=== PATIENT | female | born 1995 | race African-American/Black ===

== ENCOUNTER 2019-08-04 08:58 | Emergency (ER) | payer BC ==
--- NOTE | 2019-08-04 09:57 | EDM.PDOC ---
ED HPI GENERAL MEDICAL PROBLEM - General Chief Complaint: ENT Problem Stated Complaint: SORE THROAT Time Seen by Provider: 08/04/19 09:21 Source of Information: Reports: Patient, RN Notes Reviewed - History of Present Illness INITIAL COMMENTS - FREE TEXT/NARRATIVE: 23 year old female comes in with sore throat. This started about 1 week ago. Painful to swallow. Chills but no obvious fever. Mild nasal cheryl. Not coughing. No resp. problems. Throat Pain Score (Numeric/FACES): 10 - Related Data Allergies Allergy/AdvReac Type Severity Reaction Status Date / Time bee venom protein (honey bee) Allergy Airway Verified 08/04/19 09:24 Tightness mushroom Allergy Hives Verified 08/04/19 09:24 Home Meds: Home Meds Cephalexin [Keflex] 500 mg PO Q6HR #30 capsule 08/04/19 [Rx] Acetaminophen/HYDROcodone [[place] 325-5 MG] 1 tab PO Q6H PRN #14 tablet 08/05/19 [Rx] ED ROS ENT - Review of Systems Review Of Systems: See Below Constitutional: Reports: Chills. Denies: Fever HEENT: Reports: Throat Pain. Denies: Ear Discharge, Ear Pain, Sinus Problem Respiratory: Denies: Shortness of Breath Cardiovascular: Denies: Chest Pain GI/Abdominal: Reports: Diarrhea. Denies: Abdominal Pain, Vomiting Musculoskeletal: Reports: No Symptoms Skin: Reports: No Symptoms Neurological: Reports: No Symptoms ED EXAM, ENT - Physical Exam Exam: See Below General Appearance: Alert, Mild Distress Mouth/Throat: Pharyngeal Erythema, Tonsillar Erythema, Tonsillar Exudates, Tonsillar Swelling (mild to moderate bilat, not severe) Head: Atraumatic. No: Facial Swelling Neck: Supple. No: Lymphadenopathy (L), Lymphadenopathy (R) Respiratory/Chest: No Respiratory Distress, Lungs Clear, Normal Breath Sounds Cardiovascular: Regular Rate, Rhythm Neurological: Alert, Oriented, No Motor/Sensory Deficits Skin: Warm, Dry, Normal Color, No Rash Course - Vital Signs Last Recorded V/S: Last Vital Signs Temp 97.4 F 08/04/19 09:21 Pulse 75 08/04/19 09:21 Resp 19 08/04/19 09:21 BP 125/74 08/04/19 09:21 Pulse Ox 99 08/04/19 09:21 Departure - Departure Time of Disposition: 09:54 Disposition: Home, Self-Care 01 Condition: Fair Clinical Impression: Tonsillitis - Discharge Information Prescriptions: Cephalexin [Keflex] 500 mg PO Q6HR #30 capsule Instructions: Tonsillitis, [id number] Referrals: PCP,None [Primary Care Provider] - Forms: ED Department Discharge, ED Return to Work/School Form Additional Instructions: Cephalexin 500 mg 4 times daily for 1 week or until gone. Prescription has been sent electronically to [facility]. You may alternate Tylenol and ibuprofen as needed for pain. Follow-up clinic if not much better within 3-5 days as expected.
== END 2019-08-04 10:09 | disposition home or self-care (01) ==
LOC: JD.ED 08:58
DX: J03.90 Acute tonsillitis, unspecified (principal); Z91.030 Bee allergy status; Z91.018 Allergy to other foods
CPT/HCPCS: 87081; 87430; 99283

== ENCOUNTER 2019-08-05 13:05 | Emergency (ER) | payer BC ==
--- NOTE | 2019-08-05 13:54 | EDM.PDOC ---
ED HPI GENERAL MEDICAL PROBLEM - General Chief Complaint: Allergic Reaction Stated Complaint: SOB/POSS ALLERGIC REACTION TO MED Time Seen by Provider: 08/05/19 13:34 Source of Information: Reports: Patient, RN Notes Reviewed - History of Present Illness INITIAL COMMENTS - FREE TEXT/NARRATIVE: 23-year-old female comes in with worsening sore throat. Started a few days ago. She was seen here in the ED and make clinical diagnosis of tonsillitis, started on cephalexin antibiotic. She did get a couple of doses in last evening and then has had 2 further doses today. As that her throat is more swollen and painful today. She can feel that her neck is more full and swollen anteriorly today. No rash or other facial swelling. Some nasal and sinus congestion. And coughing. She has had some nausea but no vomiting or diarrhea. 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 Denies: Fever HEENT: Reports: Rhinitis, Throat Pain, Throat Swelling Respiratory: Denies: Shortness of Breath Cardiovascular: Denies: Chest Pain GI/Abdominal: Reports: Nausea. Denies: Abdominal Pain, Vomiting Musculoskeletal: Denies: Neck Pain, Back Pain Skin: Denies: Rash Neurological: Reports: No Symptoms ED EXAM GENERAL NO PERIP PULSE - Physical Exam Exam: See Below General Appearance: Alert, Mild Distress Eye Exam: Bilateral Eye: PERRL Throat/Mouth: Inflammation, Other (Tonsils are swollen with small amount of exudate bilateral, pharynx and posterior tonsillar area inflamed. Oral mucosa moist.) Neck: Supple, Lymphadenopathy (L), Lymphadenopathy (R) (Mild anterior mild anterior) Respiratory/Chest: No Respiratory Distress, Lungs Clear Cardiovascular: Regular Rate, Rhythm Extremities: Normal Inspection, Normal Range of Motion Neurological: Alert, Oriented, No Motor/Sensory Deficits Skin Exam: Warm, Dry, No Rash Course - Vital Signs Last Recorded V/S: Last Vital Signs Temp 98.4 F 08/05/19 13:17 Pulse 83 08/05/19 13:17 Resp 20 08/05/19 13:17 BP 119/75 08/05/19 13:17 Pulse Ox 99 08/05/19 13:17 - Orders/Labs/Meds Labs: Laboratory Tests 08/05/19 08/05/19 Range/Units 14:05 14:05 WBC 9.53 (3.98-10.04) K/mm3 RBC 4.20 (3.98-5.22) M/mm3 Hgb 12.1 (11.2-15.7) gm/dl Hct 37.3 (34.1-44.9) % MCV 88.8 (79.4-94.8) fl MCH 28.8 (25.6-32.2) pg MCHC 32.4 (32.2-35.5) g/dl RDW Std Deviation 44.0 (36.4-46.3) fL Plt Count 258 (182-369) K/mm3 MPV 10.0 (9.4-12.3) fl Neutrophils % (Manual) 59 (40-60) % Band Neutrophils % 0 (0-10) % Lymphocytes % (Manual) 32 (20-40) % Atypical Lymphs % 0 % Monocytes % (Manual) 9 (2-10) % Eosinophils % (Manual) 0 L (0.7-5.8) % Basophils % (Manual) 0 L (0.1-1.2) Platelet Estimate Adequate RBC Morph Comment Normal Monoscreen Positive H (NEGATIVE) Meds: Medications Discontinued Medications Generic Name Dose Route Start Last Admin Trade Name Freq PRN Reason Stop Dose Admin Hydrocodone Bitart/Acetaminophen 1 tab 08/05/19 15:41 08/05/19 15:46 [place] 325-5 Mg PO 08/05/19 15:42 1 tab ONETIME ONE Administration - Re-Assessments/Exams Free Text/Narrative Re-Assessment/Exam: 08/07/19 14:27 [place] has come back pos. Discharge instr. as documented Departure - Departure Time of Disposition: 15:41 Disposition: Home, Self-Care 01 Condition: Fair Clinical Impression: Infectious mononucleosis - Discharge Information Prescriptions: Acetaminophen/HYDROcodone [[place] 325-5 MG] 1 tab PO Q6H PRN #14 tablet PRN Reason: Pain Instructions: Infectious Mononucleosis Referrals: PCP,None [Primary Care Provider] - Forms: ED Department Discharge, ED Return to Work/School Form Additional Instructions: Rest, drink plenty of water to maintain hydration, prednisone 40 mg every day for 1 week or until gone, hydrocodone 1 tab every 6-8 hours as needed for severe pain, when pain becomes less severe you can take Tylenol up to 3 times daily. Follow-up at our [facility] medical clinic in about 5-7 days for recheck, call [phone] for appointment, return to ED as needed if symptoms worsening in any way.
[2019-08-05] MEDS ORDERED: Acetaminophen/HYDROcodone 325-5 MG Tab PO ONE (15:41)
== END 2019-08-05 15:57 | disposition home or self-care (01) ==
LOC: JD.ED 13:05
DX: B27.90 Infectious mononucleosis, unspecified without complication (principal); Z91.018 Allergy to other foods; Z91.030 Bee allergy status
CPT/HCPCS: 36415; 85007; 85027; 86308; 99283; A9270; 99282

== ENCOUNTER 2019-11-26 11:56 | Emergency (ER) | payer BC, MEDICAID ==
--- NOTE | 2019-11-26 13:54 | EDM.PDOC ---
ED HPI GENERAL MEDICAL PROBLEM - General Chief Complaint: Respiratory Problem Stated Complaint: COUGH Time Seen by Provider: 11/26/19 13:54 - History of Present Illness INITIAL COMMENTS - FREE TEXT/NARRATIVE: 24-year-old female presents the emergency room with asthma. Patient denies fevers or chills but also has a sore throat she is got a long history of asthma and sometimes gets really bad this time year she is wondering if she can get a nebulizer machine. She states her asthma is getting a little bit worse she uses her albuterol inhaler no more than once a day at this point.. However she is getting a little worse. She has a sore throat but no associated fever. She has had mono in the past and this is different Chest Pain Score (Numeric/FACES): 8 - Related Data Allergies Allergy/AdvReac Type Severity Reaction Status Date / Time bee venom protein (honey bee) Allergy Airway Verified 08/04/19 09:24 Tightness mushroom Allergy Hives Verified 08/04/19 09:24 Home Meds: Home Meds Albuterol Sulfate [Albuterol Sulfate Hfa] 8.5 gm IH ASDIRECTED #1 hfa.aer.ad [Rx] Albuterol Sulfate [Albuterol Sulfate Hfa] 8.5 gm IH Q4HR PRN 11/26/19 [History] predniSONE 40 mg PO WITHBREAKFAST #8 tab 11/26/19 [Rx] predniSONE [Prednisone] 40 mg PO QAM #8 tablet 11/26/19 [Rx] Past Medical History - Past Health History Medical/Surgical History: Denies Medical/Surgical History Respiratory History: Reports: Asthma 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 Denies: Shortness of Breath, Sputum ( Occasional) Cardiovascular: Reports: No Symptoms Endocrine: Reports: No Symptoms GI/Abdominal: Reports: No Symptoms : Reports: No Symptoms Musculoskeletal: Reports: No Symptoms Skin: Reports: No Symptoms Neurological: Reports: No Symptoms ED EXAM, GENERAL - Physical Exam Exam: See Below Exam Limited By: No Limitations General Appearance: Alert, No Apparent Distress Eye Exam: Bilateral Eye: Normal Inspection Ears: Normal External Exam, Normal Canal, Hearing Grossly Normal, Normal TMs Nose: Normal Inspection, Normal Mucosa, No Blood Throat/Mouth: Normal Lips, Normal Teeth, Normal Voice, No Airway Compromise, Other (Exudate on the tonsils mild erythema of the posterior pharynx and tonsils ) Head: Atraumatic, Normocephalic Neck: Normal Inspection, Supple, Non-Tender, Full Range of Motion. No: Lymphadenopathy (L), Lymphadenopathy (R) Respiratory/Chest: No Respiratory Distress, Lungs Clear, Decreased Breath Sounds (Slightly decreased breath sounds no wheezes crackles or rhonchi) Cardiovascular: Regular Rate, Rhythm, No Edema, No Murmur Course - Vital Signs Last Recorded V/S: Last Vital Signs Temp 37.1 C 11/26/19 12:42 Pulse 64 11/26/19 12:42 Resp 16 11/26/19 12:42 BP 119/74 11/26/19 12:42 Pulse Ox 98 11/26/19 12:42 - Orders/Labs/Meds Orders: Active Orders 24 hr Category Date Time Status CULTURE STREP A CONFIRMATION [RM] Stat Lab 11/26/19 14:23 Results Rapid Strep w/culture conf [STREP SCRN A RAPID W CULT Lab 11/26/19 14:23 Results CONF] [RM] Stat Meds: Medications Discontinued Medications Generic Name Dose Route Start Last Admin Trade Name Serena PRN Reason Stop Dose Admin Prednisone 40 mg 11/26/19 14:11 11/26/19 14:21 Prednisone PO 11/26/19 14:12 40 mg ONETIME ONE Administration - Re-Assessments/Exams Free Text/Narrative Re-Assessment/Exam: 11/26/19 15:39 Patient is continuing to do well here in the emergency department her rapid strep is negative. Chest x-ray shows no acute process she is got some mild hyperinflation. At this point we will discharge the patient with prednisone 40 mg a day. She is to increase her albuterol inhaler to 2 puffs every 4 hours while awake and then gradually decrease. She is just establishing with a local provider now discuss topical steroid treatment if needed. Departure - Departure Time of Disposition: 15:41 Disposition: Home, Self-Care 01 Clinical Impression: Asthma - Discharge Information Prescriptions: Albuterol Sulfate [Albuterol Sulfate Hfa] 8.5 gm IH ASDIRECTED #1 hfa.aer.ad predniSONE 40 mg PO WITHBREAKFAST #8 tab predniSONE [Prednisone] 40 mg PO QAM #8 tablet Referrals: PCP,None [Primary Care Provider] - Forms: ED Department Discharge Additional Instructions: Return to the emergency room with any questions problems or worsening symptoms. Use your albuterol 2 puffs every 4 hours while awake for the next week and then as needed. Follow-up with your regular provider you are trying to establish with this next week and discussed inhaled steroid treatment for your asthma. Use great caution out in the community with the Covid problem we have as it is very contagious and more dangerous to people with asthma. Sepsis Event Note - Evaluation Sepsis Screening Result: No Definite Risk - Focused Exam Vital Signs: Vital Signs Temp Pulse Resp BP Pulse Ox 11/26/19 12:42 37.1 C 64 16 119/74 98 Date Exam was Performed: 11/26/19 Time Exam was Performed: 15:39 - My Orders Last 24 Hours: My Active Orders 11/26/19 14:23 CULTURE STREP A CONFIRMATION [RM] Stat Rapid Strep w/culture conf [STREP SCRN A RAPID W CULT CONF] [] Stat - Assessment/Plan Last 24 Hours: My Active Orders 11/26/19 14:23 CULTURE STREP A CONFIRMATION [RM] Stat Rapid Strep w/culture conf [STREP SCRN A RAPID W CULT CONF] [] Stat
[2019-11-26] MEDS ORDERED: predniSONE 20 MG Tab PO ONE (14:11)
--- NOTE | 2019-11-26 15:10 | CR ---
Chest: PA and lateral views of the chest were obtained. Comparison: No prior chest x-ray. Heart size and mediastinum are normal. Lungs are clear with no acute parenchymal change. Bony structures are unremarkable. Impression: 1. Nothing acute is seen in 2 view chest x-ray. Diagnostic code #1 Study was dictated in MDT
== END 2019-11-26 16:05 | disposition home or self-care (01) ==
LOC: JD.ED 11:56
DX: J45.909 Unspecified asthma, uncomplicated (principal); Z91.030 Bee allergy status; Z91.018 Allergy to other foods
CPT/HCPCS: 71046; 87081; 87430; 99285; A9270; 99283

== ENCOUNTER 2019-12-23 15:40 | Emergency (ER) | payer BC, MEDICAID ==
[2019-12-23] MEDS ORDERED: Sodium Chloride 0.9% 10 ML Syringe FLUSH PRN (16:11)
--- NOTE | 2019-12-23 16:35 | EDM.PDOC ---
ED HPI GENERAL MEDICAL PROBLEM - General Chief Complaint: SEPTIC CLEANER Problem Stated Complaint: NEWLY PG/BLEEDING Time Seen by Provider: 12/23/19 15:57 Source of Information: Reports: Patient, RN Notes Reviewed History Limitations: Reports: No Limitations - History of Present Illness INITIAL COMMENTS - FREE TEXT/NARRATIVE: Patient is a 24-year-old female who presents to the ED for the evaluation of her vaginal bleeding and . The patient states that she is around 5-1/ 2 to 6 weeks , and she is started having some vaginal bleeding this morning, it started off at light spotting, but has increased to heavier more sustained flow over the day. She states that she is having more intense cramping as the bleeding has gotten worse. She notes that she is saturating a panty liner, and has only changed her liner 2 times today. She denied seeing any sort of clots, or any sort of dizziness and lightheadedness. She states that she was supposed to have an appoint with Dr. Mackey on Thursday for establishing with this . She is a , and states that she had no problems with her previous . She denies any other sick-like symptoms, fever/chills, cough/shortness of breath, nausea/vomiting/diarrhea. 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 ED EXAM - Physical Exam Exam: See Below Exam Limited By: No Limitations General Appearance: Alert, WD/WN, No Apparent Distress Eye Exam: Bilateral Eye: EOMI, Normal Inspection, PERRL Ears: Normal External Exam Nose: Normal Inspection Throat/Mouth: Normal Inspection, Normal Lips, Normal Teeth, Normal Gums, Normal Oropharynx, Normal Voice, No Airway Compromise Head: Atraumatic, Normocephalic Neck: Normal Inspection Respiratory/Chest: No Respiratory Distress, Lungs Clear, Normal Breath Sounds, No Accessory Muscle Use, Chest Non-Tender Cardiovascular: Normal Peripheral Pulses, Regular Rate, Rhythm, No Edema, No Murmur GI/Abdominal Exam: Normal Bowel Sounds, Soft, Non-Tender, No Distention, No Mass Heart Tones: Not Rains Movement: Not Appreciated Extremities: Normal Inspection, Normal Capillary Refill Neurological: Alert, Oriented, Normal Cognition, No Motor/Sensory Deficits Psychiatric: Normal Affect, Normal Mood Skin Exam: Warm, Dry, Intact, Normal Color, No Rash Course - Vital Signs Last Recorded V/S: Last Vital Signs Temp 99.0 F 12/23/19 16:01 Pulse 56 L 12/23/19 16:54 Resp 18 12/23/19 16:54 BP 118/60 12/23/19 16:54 Pulse Ox 100 12/23/19 16:54 - Orders/Labs/Meds Orders: Active Orders 24 hr Category Date Time Status Peripheral IV Care [RC] . DIRECTED Care 12/23/19 16:12 Ordered OB Transvaginal [US] Stat Exams 12/23/19 16:11 Ordered PATIENT RETYPE [BBK] Routine Lab 12/23/19 17:22 Ordered Sodium Chloride 0.9% [Saline Flush] Med 12/23/19 16:11 Ordered 10 ml FLUSH ASDIRECTED PRN Peripheral IV Insertion Adult [OM.PC] Stat Oth 12/23/19 16:11 Ordered Medication Orders Sodium Chloride (Saline Flush) 10 ml FLUSH ASDIRECTED PRN PRN Reason: Keep Vein Open Labs: Laboratory Tests 12/23/19 12/23/19 12/23/19 Range/Units 16:22 16:22 16:22 WBC 5.75 (3.98-10.04) K/mm3 RBC 4.28 (3.98-5.22) M/mm3 Hgb 12.5 (11.2-15.7) gm/dl Hct 38.6 (34.1-44.9) % MCV 90.2 (79.4-94.8) fl MCH 29.2 (25.6-32.2) pg MCHC 32.4 (32.2-35.5) g/dl RDW Std Deviation 45.1 (36.4-46.3) fL Plt Count 257 (182-369) K/mm3 MPV 10.7 (9.4-12.3) fl Neut % (Auto) 60.1 (34.0-71.1) % Lymph % (Auto) 32.9 (19.3-51.7) % [place] % (Auto) 6.6 (4.7-12.5) % Eos % (Auto) 0.2 L (0.7-5.8) Baso % (Auto) 0.2 (0.1-1.2) % Neut # (Auto) 3.46 (1.56-6.13) K/mm3 Lymph # (Auto) 1.89 (1.18-3.74) K/mm3 [place] # (Auto) 0.38 H (0.24-0.36) K/mm3 Eos # (Auto) 0.01 L (0.04-0.36) K/mm3 Baso # (Auto) 0.01 (0.01-0.08) K/mm3 HCG, Quant 11.0 mIU/mL Blood Type B POSITIVE Meds: Medications Generic Name Dose Route Start Last Admin Trade Name Freq PRN Reason Stop Dose Admin Sodium Chloride 10 ml 12/23/19 16:11 Saline Flush FLUSH ASDIRECTED PRN Keep Vein Open - Re-Assessments/Exams Free Text/Narrative Re-Assessment/Exam: 12/23/19 16:34 Patient presents to the ED for evaluation of her vaginal bleeding/cramping in . Have ordered transvaginal ultrasound, and some basic labs for further evaluation. 12/23/19 17:29 Patient's laboratory evaluation and ultrasound have returned, the patient's hCG level is 11.0, blood type is B+. Hemoglobin is within normal limits. Ultrasound demonstrates no intrauterine , differential considerations would include early intrauterine too soon to characterize recent or possible ectopic gestation. Close interval hCG and sonographic follow-up suggested to better characterize. I did talk the results over with Dr. Mackey, and the patient's last menstrual period was 11/17/2019, and she would agree that it is more of a spontaneous in nature, and states that the patient can follow-up with her in clinic early next week for repeat hCG and reevaluation. Departure - Departure Time of Disposition: 17:30 Disposition: Home, Self-Care 01 Condition: Good Clinical Impression: Complete - Discharge Information *PRESCRIPTION DRUG MONITORING PROGRAM REVIEWED*: No *COPY OF PRESCRIPTION DRUG MONITORING REPORT IN PATIENT KRISTEN: No Instructions: Coping With Loss, Miscarriage, [id number] Referrals: PCP,None [Primary Care Provider] - Forms: ED Department Discharge Additional Instructions: You were evaluated in the ER today regarding your abdominal pain/vaginal bleeding in . You did have some labs drawn, and these were within normal limits, your hCG level was 11.0 , your blood type is B+. Your ultrasound demonstrated the possibility of an early intrauterine , recent spontaneous or possible ectopic . In combination with the extremely low HCG level for your suspected gestational age, You most likely had a spontaneous and you will have some cramping and continued vaginal bleeding. Recommend that you do not lift anything heavier than a gallon of milk (5 lbs), do not engage in sexual activities, try to get as much pelvic rest as possible for the next few days. Please try not to exert yourself, rest and relax, and take it easy. If you are bleeding through more than 1-2 maxi pads every couple hours, this would be cause for concern to return to the ER for immediate management. Dr. Mackey was consulted on your case, and she would also agree that she thinks this is more of a spontaneous , and would like you to follow-up with her early next week, she states to keep your appointment as previously scheduled, and return to the ER if things should worsen over the weekend. Please return to the ED at any time if your symptoms change or worsen. Sepsis Event Note - Evaluation Sepsis Screening Result: No Definite Risk - Focused Exam Vital Signs: Vital Signs Temp Pulse Resp BP Pulse Ox 12/23/19 16:54 56 L 18 118/60 100 12/23/19 16:01 99.0 F 76 16 106/68 100 Date Exam was Performed: 12/23/19 Time Exam was Performed: 17:28 - My Orders Last 24 Hours: My Active Orders 12/23/19 16:11 OB Transvaginal [US] Stat Sodium Chloride 0.9% [Saline Flush] 10 ml FLUSH ASDIRECTED PRN Peripheral IV Insertion Adult [OM.PC] Stat 12/23/19 16:12 Peripheral IV Care [RC] . DIRECTED 12/23/19 17:22 PATIENT RETYPE [BBK] Routine - Assessment/Plan Last 24 Hours: My Active Orders 12/23/19 16:11 OB Transvaginal [US] Stat Sodium Chloride 0.9% [Saline Flush] 10 ml FLUSH ASDIRECTED PRN Peripheral IV Insertion Adult [OM.PC] Stat 12/23/19 16:12 Peripheral IV Care [RC] . DIRECTED 12/23/19 17:22 PATIENT RETYPE [BBK] Routine
--- NOTE | 2019-12-24 11:57 | US ---
1st trimester ultrasound: Multiple real-time images of the pelvis were obtained transvaginally. Comparison: No previous study is available. Uterus is anteverted. No intrauterine gestational sac is noted. Minimal fluid is seen within the cul-de-sac believed to be incidental. Endometrial thickness of 9 mm which is within normal limits. Small physiologic cyst is noted within the right ovary measuring 1.7 cm. Ovaries are otherwise unremarkable. No adnexal abnormalities are seen. Impression: 1. No intrauterine gestational sac or adnexal abnormalities are seen. If patient has positive test, findings could represent too early to visualize, miscarriage or less likely a nonvisualized ectopic . Diagnostic code #1 This report was dictated in MDT I agree with preliminary report from isiah, finalized on 12/23/19, 6:01 PM Central Daylight Time
== END 2019-12-23 17:58 | disposition home or self-care (01) ==
LOC: JD.ED 15:40
DX: O03.9 Complete or unspecified spontaneous abortion without complication (principal); J45.909 Unspecified asthma, uncomplicated; Z91.030 Bee allergy status; Z91.018 Allergy to other foods
CPT/HCPCS: 36415; 76817; 76817-26; 84702; 85025; 86900; 86901; 99283; 99284-25